=== PATIENT | male | born 1965 | race Caucasian/White ===

== ENCOUNTER → 2016-09-13 | Day surgery (SDC) | payer BC, OTHER ==
[~2016-09-13] VITALS: Ht 193 cm; Wt 99.8 kg
[~2016-09-13] MED LIST: ACETAMINOPHEN 325 MG TAB PO PRN; ACETYLCHOLINE OPHTH SOLN 1% 2ML As Ordered ONE; AcetaZOLAMIDE 500 MG ER CAP PO ONE; BALANCED SALT IRRIGATION SOLUTION 500ML BAG (FOR OR EYE MACHINE) As Ordered ONE; CEFUROXIME 1MG/0.1ML INTRACAMERAL INJ As Ordered ONE; CYCLOPENTOLATE 2% OPHTH SOLN OD ONE; D5W/0.2% SODIUM CHLORIDE 1,000 ML IV SCH; HEALON DUET (HEALON 10MG/ML 0.55ML & HEALON ENDOCOAT 30MG/ML 0.85ML) As Ordered ONE; KETOROLAC 0.5% OPHTH SOLN OD ONE; LIDOCAINE 1% SDV 5 ML VIAL As Ordered ONE; LIDOCAINE 4% INJ 5 ML AMP OU ONE; MIDAZOLAM INJ 2 MG/2 ML VIAL (J2250) As Ordered ONE; OFLOXACIN 0.3 % (OCUFLOX) OPTH SOL 5ML OD ONE; PHENYLEPHRINE 2.5% OPHTH SOL 2ML OD ONE; POVIDONE-IODINE 5% OPHTH PREP SOL 30ML As Ordered ONE; PROPARACAINE 0.5% OPHTH SOL 15ML OD PRN; TRIMETHOBENZAMIDE 300 MG CAP PO PRN; TROPICAMIDE 1% OPHTH SOLN 2 ML OD ONE; fentaNYL 100 MCG/2 ML INJECTION (J3010) As Ordered ONE; no medications
[2016-09-13 12:25] VITALS: BP 116/55
--- NOTE | 2016-09-13 18:20 | RO ---
DATE OF PROCEDURE: 09/13/2016 PREPROCEDURE DIAGNOSIS: Age-related nuclear cataract right eye. POSTPROCEDURE DIAGNOSIS: Age-related nuclear cataract right eye. PROCEDURE: Femtosecond cataract extraction of the posterior chamber intraocular lens implantation right eye. SURGEON: Mya Elizabeth MD MAINTENANCE PARTS TECHNICIAN: ANESTHESIA: Topical with sedation. LENS USED: ZLB00 20.5 diopter. DESCRIPTION OF PROCEDURE: The patient was brought to the operating room and put under the Femtosecond laser. A lid speculum was placed between the lids and the laser was lowered on. Docking was achieved with good suction. The laser procedure was performed with no difficulty. The laser was then removed from the eye and the lid speculum was removed. The laser was moved over to the operating microscope and prepped and draped in the usual fashion. A lid speculum was placed between the lids. The eye was fixated. The side-port incision was opened up with a spatula. 1% non-preservative Lidocaine was instilled; then viscoelastic was instilled. The main incision was then opened with the spatula. The capsulorrhexis was removed from the eye with the Utrata forceps. The lens then hydrodissected and a phacoemulsification was used to make a groove in the nucleus and one meridian. The nucleus was cracked into four quadrants and then each quadrant was removed with the phacoemulsification unit. Any remaining cortex was removed with the I and A unit. The capsular bag was refilled with viscoelastic. A posterior chamber intraocular lens was placed in the capsular bag. The remaining viscoelastic was removed. The wound was hydrated. Miochol and cefuroxime were instilled. The wound was water-tight. The patient tolerated the procedure well and went to the recovery room in stable condition.
== END | disposition home or self-care (01) ==
LOC: M SDC 10:41
PROVIDERS: ATTEND Ophthalmology
DX: H25.11 Age-related nuclear cataract, right eye (principal); E78.5 Hyperlipidemia, unspecified
CPT/HCPCS: 66984; J2250; J3010

== ENCOUNTER 2018-08-07 07:05 | Day surgery (SDC) | payer BC ==
[~2018-08-07] VITALS: Ht 193 cm; Wt 105.2 kg
[~2018-08-07 07:05] MED LIST changes: -ACETAMINOPHEN 325 MG TAB PO PRN; -ACETYLCHOLINE OPHTH SOLN 1% 2ML As Ordered ONE; -AcetaZOLAMIDE 500 MG ER CAP PO ONE; +CYCLOPENTOLATE 2% OPHTH SOLN 2ML BTL OS ONE; -CYCLOPENTOLATE 2% OPHTH SOLN OD ONE; -D5W/0.2% SODIUM CHLORIDE 1,000 ML IV SCH; -HEALON DUET (HEALON 10MG/ML 0.55ML & HEALON ENDOCOAT 30MG/ML 0.85ML) As Ordered ONE; +HEALON DUET PRO(HEALON 10MG/ML 0.55ML & HEALON ENDOCOAT 30MG/ML 0.85ML) As Ordered ONE; -KETOROLAC 0.5% OPHTH SOLN OD ONE; +LIDOCAINE 3.5 % 1ML OPHTH TOPICAL GEL OU ONE; -LIDOCAINE 4% INJ 5 ML AMP OU ONE; -MIDAZOLAM INJ 2 MG/2 ML VIAL (J2250) As Ordered ONE; -OFLOXACIN 0.3 % (OCUFLOX) OPTH SOL 5ML OD ONE; +OFLOXACIN 0.3 % (OCUFLOX) OPTH SOL 5ML OS ONE; -PHENYLEPHRINE 2.5% OPHTH SOL 2ML OD ONE; +PHENYLEPHRINE 2.5% OPHTH SOL 2ML OS ONE; +PHENYLEPHRINE HCL 10 % OPHTH. SOL 5ML OS PRN; -PROPARACAINE 0.5% OPHTH SOL 15ML OD PRN; -TRIMETHOBENZAMIDE 300 MG CAP PO PRN; -TROPICAMIDE 1% OPHTH SOLN 2 ML OD ONE; +TROPICAMIDE 1% OPHTH SOLN 2ML OS ONE; -fentaNYL 100 MCG/2 ML INJECTION (J3010) As Ordered ONE
[2018-08-07] MEDS ORDERED: DUOVISC (0.50ML VISCOAT/0.55ML PROVISC) OPHTH KIT As Ordered ONE (08:29)
[2018-08-07] MEDS ORDERED: fentaNYL 100 MCG/2 ML INJECTION (J3010) As Ordered ONE (08:32)
[2018-08-07] MEDS ORDERED: MIDAZOLAM INJ 2 MG/2 ML VIAL (J2250) As Ordered ONE (08:34)
[2018-08-07 09:20] VITALS: BP 118/60
--- NOTE | 2018-08-09 12:34 | RO ---
DATE OF PROCEDURE: 08/07/2018 PREOPERATIVE DIAGNOSIS: Age-related posterior subcapsular cataract and nuclear cataract of left eye. POSTOPERATIVE DIAGNOSIS: Age-related posterior subcapsular cataract and nuclear cataract of left eye. PROCEDURE PERFORMED: Femtosecond cataract extraction with posterior chamber intraocular lens implantation and Optiwave Refractive Analysis (ORA). Lens used was an CKD00, 22.5 diopter. SURGEON: Mya Elizabeth MD TIRE DESIGN ENGINEER: ANESTHESIA: Topical with sedation. DESCRIPTION OF PROCEDURE: Patient was prepped and draped in usual fashion. A lid speculum was placed between the lids. The eye was fixated. A stab incision was made into the anterior chamber. 1% nonpreserved lidocaine was instilled. Then viscoelastic was instilled. The main incision was then opened with the incision reject opener, and the anterior capsulorrhexis was removed, was performed by the laser. The lens was then rocked to remove any gas from behind it, and then it was freely movable in the capsular bag. The phacoemulsification unit was used to groove the nucleus in two meridians. The nucleus was cracked into four quadrants. Each quadrant was removed with the phacoemulsification unit. Any remaining cortex was removed with the irrigation and aspiration (I and A) unit. The capsular bag was refilled with viscoelastic, and then the intraocular pressure measured and found to be adequate for ORA. The ORA was lowered into place, focused on the apex of the cornea, and aligned to the patient. Readings were made, and an appropriate intraocular lens was chosen from the data generated by the ORA. The lens was then injected into the eye with its email designer and into the capsular bag. It was in great position. Any remaining viscoelastic was removed with the I and A unit. The wound was then hydrated, and balanced salt solution (BSS) and cefuroxime were instilled. Patient tolerated this procedure well and went to recovery room in stable condition.
== END 2018-08-07 09:25 | disposition home or self-care (01) ==
LOC: M SDC 07:05
PROVIDERS: ATTEND Ophthalmology
DX: H25.042 Posterior subcapsular polar age-related cataract, left eye (principal); E78.5 Hyperlipidemia, unspecified
CPT/HCPCS: 66984; 92015; J2250; J3010

== ENCOUNTER → 2020-07-23 | Outpatient (CLI) | payer BC ==
[~2020-07-23] MED LIST changes: -BALANCED SALT IRRIGATION SOLUTION 500ML BAG (FOR OR EYE MACHINE) As Ordered ONE; -CEFUROXIME 1MG/0.1ML INTRACAMERAL INJ As Ordered ONE; -CYCLOPENTOLATE 2% OPHTH SOLN 2ML BTL OS ONE; -HEALON DUET PRO(HEALON 10MG/ML 0.55ML & HEALON ENDOCOAT 30MG/ML 0.85ML) As Ordered ONE; -LIDOCAINE 1% SDV 5 ML VIAL As Ordered ONE; -LIDOCAINE 3.5 % 1ML OPHTH TOPICAL GEL OU ONE; -OFLOXACIN 0.3 % (OCUFLOX) OPTH SOL 5ML OS ONE; -PHENYLEPHRINE 2.5% OPHTH SOL 2ML OS ONE; -PHENYLEPHRINE HCL 10 % OPHTH. SOL 5ML OS PRN; -POVIDONE-IODINE 5% OPHTH PREP SOL 30ML As Ordered ONE; -TROPICAMIDE 1% OPHTH SOLN 2ML OS ONE
== END ==
LOC: M LABSMTC 13:09
PROVIDERS: ATTEND Anesthesiology
DX: Z01.812 Encounter for preprocedural laboratory examination (principal); Z20.822 Contact with and (suspected) exposure to COVID-19

== ENCOUNTER 2020-07-28 06:04 | Day surgery (SDC) | payer BC ==
[~2020-07-28] VITALS: Ht 190.5 cm; Wt 109.2 kg
[~2020-07-28 06:04] MED LIST changes: +CelecoXIB (CeleBREX) 100 MG CAP PO ONE; +LR 1,000 ML IV ONE; +ceFAZolin SOD 2 GM in IV 1 EA IV ONE
[2020-07-28] MEDS ORDERED: ROCURONIUM BROMIDE 50 MG/5 ML VIAL As Ordered ONE (07:15)
[2020-07-28] MEDS ORDERED: LIDOCAINE 2% 100MG/5ML SDV (FOR ANES.) As Ordered ONE (07:15)
[2020-07-28] MEDS ORDERED: propofoL 200 MG/20 ML VIAL As Ordered ONE (07:15)
[2020-07-28] MEDS ORDERED: fentaNYL 100 MCG/2 ML INJECTION (J3010) As Ordered ONE ×2 (07:15→10:11)
[2020-07-28] MEDS ORDERED: MIDAZOLAM INJ 2MG/2ML VIAL (J2250 PER 1MG) As Ordered ONE (07:16)
[2020-07-28] MEDS ORDERED: LIDOCAINE 1% SDV 30ML VIAL As Ordered ONE (07:17)
[2020-07-28] MEDS ORDERED: BUPIVACAINE HCL 0.25% 30ML VIAL As Ordered ONE (07:17)
[2020-07-28] MEDS ORDERED: SUGAMMADEX SODIUM 500 MG/5 ML VIAL (BRIDION) As Ordered ONE (09:22)
[2020-07-28] MEDS ORDERED: ONDANSETRON 4MG/2ML VIAL As Ordered ONE (09:22)
[2020-07-28] MEDS ORDERED: oxyCODONE 5MG TAB As Ordered ONE (10:11)
[2020-07-28] MEDS ORDERED: ONDANSETRON 4MG/2ML VIAL IV PRN ×2 (10:30→11:30)
[2020-07-28] MEDS ORDERED: LR 1,000 ML IV SCH (10:30)
[2020-07-28] MEDS ORDERED: fentaNYL 100 MCG/2 ML INJECTION (J3010) IV PRN (10:30)
[2020-07-28] MEDS ORDERED: oxyCODONE 5MG TAB PO PRN (10:30)
[2020-07-28 10:45] VITALS: BP 146/84
[2020-07-28] MEDS ORDERED: NORCO, ANEXSIA 5/325MG TABLET (HYDROcodone/ACETAMINOPHEN) PO PRN (11:30)
[2020-07-28] MEDS ORDERED: KETOROLAC 30 MG/ML 1ML VIAL IV PRN (11:30)
--- NOTE | 2020-07-28 17:14 | ECGEPIP ---
[facility] Test Date: 2020-07-28 Pat Name: JORDY IRIS Department: Room: - Gender: Male Director Of Culture: emily : 1965 Requested By: JITENDRA Morfin Order Number: [id number] Reading MD: Jordy Peña Measurements Intervals Reserve Rate: 59 P: 56 MA: 212 QRS: -16 QRSD: 98 T: 6 QT: 410 QTc: 405 Interpretive Statements Sinus bradycardia with 1st degree AV block No prior ECG available for comparison at the time of interpretation. Electronically Signed on 07-28-2020 17:13:43 EST by Jordy Peña
--- NOTE | 2020-07-29 10:57 | ROOPDOC ---
[facility] Report Of Operation Report of Operation DATE OF PROCEDURE: 07/28/20 PREPROCEDURE DIAGNOSES: left inguinal hernia. POSTPROCEDURE DIAGNOSES: left indirect, cord lipoma, small left direct inguinal hernia. PROCEDURE: Robotic-assisted laparoscopic repair of left inguinal hernia (transabdominal preperitoneal repair with 15 x 10 cm Pro trench digging machine operator mesh). bilateral transversus abdominis block (1% lidocaine, 1/4% Marcaine) SURGEON: Dov Gar MD SOFTWARE DESIGN ANALYST: Sheyla Ovalles NP Ms. Ovalles assisted with placement of ports, instrument exchange and introduction of mesh on the field while I was at the surgeon's console, extraction of specimen and closure of ports. ANESTHESIA: General Anesthesia ESTIMATED BLOOD LOSS: Approximately 10 mL. COMPLICATIONS: none. REMARKS: Patient with small direct hernia, small opening to the internal inguin al ring but bulky cord lipoma which was removed and partially resected. DESCRIPTION OF PROCEDURE: Patient received 2 g of Ancef IV preoperatively for wound prophylaxis. Patient was brought to the operating room, placed supine on the operating table. Compression boots placed in both lower extremities for DVT prophylaxis. General endotracheal anesthesia started. His abdomen and groin/pelvic area then prepped and draped in the usual sterile fashion. We paused for a surgical timeout using both pre-incision safety checklist to verify correct patient, procedure site and additional clinical information prior to beginning the procedure Entry to the abdomen done through a small incision 5 cms above the umbilical skin cleft. A Veress needle is inserted on a controlled fashion. CO2 insufflation started to pressure 15 mmHg. Using the same incision an 8 mm robotic trochar is then placed under direct vision of a 5mm laparoscope. The insertion site was inspected for injury and none was found. Patient was then positioned on a 12 degree Trendelenburg position, slight tilt towards the right for adequate view of the hernia defect. Two 8mm working ports placed to the right and left of the camera trochar slightly oblique to center on the left side. The da Vandana robot tower was then positioned in place and the trochars docked onto the robot. The robotic instruments were placed and positioned. I then unscrubbed and took control of the camera and the robotic instruments at the surgeon's console. I used a 0 degree 8 mm robotic laparoscope, A forced bipolar forceps with bipolar cautery on left arm and A stephane-cut laparoscopic scissor with unipolar cautery in arm 1 was used, later on exhanged for a large suture cut needle experienced truck driver. Operative Findings: Prior right inguinal hernia repair is intact mesh appropriately positioned. No recurrence. Left inguinal hernia and partially covered with a course of the sigmoid colon. Small opening at the internal ring, mild protrusion through the direct hernia ring with weakness over the area. The attachments of the sigmoid colon close to the internal ring were lysed sharply. The peritoneum was opened up about 7 cms above the superior edge of the indirect hernia ring of the inguinal hernia starting at the medial umbilical ligament going i laterally towards the level of the anterior superior iliac spine. I maintained a preperitoneal dissection, keeping the parietal covering of the inferior epigastric vessels intact. The peritoneal envelope was then developed approaching the space of Retzius bringing the urinary bladder down. Midline dissection was mildly difficult with scar and adherence and presence of prior hernia with slight overlap of the mesh at the midline. The pubic tubercle was exposed past the symphysis pubis and 2 cms inferior to the lower edge fo the pubic tubercle. The preperitoneal tissue invaginating through the direct defect was reduced and lysed from the attenuated transversalis fascia.The lateral space of Bogros was similarly opened up keeping the parietal envelope to the psoas mus rj to prevent injury to the nerves traversing the muscle. . On approaching the inguinal hernia defect the hernia sac was pulled back into the preperitoneal space and carefully dissected off the testicular vessels and vas deferens, keeping this structures in place and with no manipulation of the testicular structures.The inguinal hernia sac which was fully reduced back into the abd omen. The peritoneum was dissected further inferior to create adequate space for the mesh. The vas deferens was parietalized partially to free up the petioneum inferiorly and medially. A large sized, bulky cord lipoma was found and reduced back into the preperitoneal space. I decided to divide the lipomatous tissue as this was occupying a good amountof the preperitoneal after this was fully reduced. After fully dissecting the preperitoneal space, I checked for adequate hemostasis, as well as for presence of femoral hernia( none found), direct hernia and adequacy of the space created. I chose a 15 x 10 cm Parietex Pro Billing Administrator self fixating mesh. This was folded with the center of the mesh marked for positioning. This was then delivered intra- abdominally through one of the trochars. In a controlled fashion this was positioned into the preperitoneal space with the medial side past the symphysis pubis, inferiorly below the pubic tubercle and center of the mesh abutting the inferior epigastric vessels,laterally at the Space of Bogros. This was carefully pressed onto the abdominal wall and made sure that it was flattened up. After careful placement of the mesh, the peritoneal opening was then closed with a running suture of 2-0V LOC suture. The placement of mesh was checked after closure of the peritoneum by releasing some of the gas that accumulated in the scrotum and preperitoneal space. I then surveyed the abdomen and pelvis for any signs of injury. The cord lipoma was placed in the 5 mm Endo bag and retrieved through one of the port sites which needed mild enlargement. The instruments were removed. The abdomen was deflated. All ports were removed. The skin incisions were closed with 4-0 Monocryl in subcuticular fashion. The incisions were covered with Dermabond. The port sites were again infiltrated with local anesthesia. An ilioinguinal nerve block was also performed. Patient was promptly awakened, extubated and brought to the recovery room stable Count of sponges and instruments were verified correct. DOV GAR MD Jul 29, 2020 10:57
== END 2020-07-28 11:14 | disposition home or self-care (01) ==
LOC: M SDC 06:04
PROVIDERS: ATTEND Surgery
DX: K40.90 Unilateral inguinal hernia, without obstruction or gangrene, not specified as recurrent (principal); D17.6 Benign lipomatous neoplasm of spermatic cord; Z96.1 Presence of intraocular lens; Z98.41 Cataract extraction status, right eye; Z98.42 Cataract extraction status, left eye
CPT/HCPCS: 49650; 64425; 64488; 88304; 93005; C1781; J0690; J2250; J2405; J3010; S2900